=== PATIENT | female | born 1970 | race Hispanic/Latino ===

== ENCOUNTER 2018-06-21 07:46 | Outpatient (CLI) | payer BC ==
--- NOTE | 2018-06-21 11:45 | MRI ---
MRI LUMBAR SPINE NONCONTRAST: DATE: 06/21/18 HISTORY: 47-year-old female with chronic low back pain ICD-10: M54.5, and left lumbar radiculopathy. COMPARISON: No prior MRIs. FINDINGS: There are five lumbar-type vertebrae. Vertebral body heights are maintained. No major subluxation. Di sc space narrowing is mild to moderate at all levels from L1-2 through L5-S1, with mild diffuse disc bulges at all of those levels. Conus medullaris terminates at L2. The superior border of what is prob ably an enlarged uterus is visualized at the inferior edges of the sagittal sequences. If this is ins tead a distended urinary bladder, then the montiel would be abnormally thickened with abnormal signal. This is incompletely imaged. T12-L1: Essentially normal. L1-2: No high grade central stenosis. Mild left neural foraminal stenosis. No right neural foraminal stenos is. L2-3: No high grade central or neural foraminal stenosis. L3-4: In addition to the diffuse disc bulge, there is a superimposed left paracentral, left lateral, and le ft far lateral broad-based disc herniation, which effaces the left lateral recess and causes mild to moderate left neural foraminal stenosis. There is mild thecal sac stenosis, with effacement of the le ft side. No right neural foraminal stenosis. L4-5: Moderate thickening of ligamentum flavum. Bilateral moderate to severe degenerative facet changes. Pr ominent posterior epidural fat pad. Moderate central spinal canal stenosis in trefoil configuration. Moderate to severe thecal sac stenosis. Mild to moderate right neural foraminal stenosis. Moderate le ft neural foraminal stenosis. Mild bone marrow edema in the right L5 pedicle. Mild soft tissue edema in the perivertebral space josefina und the right facet complex. More extensive, more severe bone marrow edema of left L5 pedicle. Greate r degree of soft tissue edema round the left facet complex compared to the right. L5-S1: Mild to moderate right degenerative facet disease. Moderate left degenerative facet disease with left facet joint effusion. Left-sided S1 pedicle bone marrow edema. Edema in soft tissues of the posterio r perivertebral spaces surrounding the left facet complex. Left facet joint effusion. Moderate left n eural foraminal stenosis. Little or no right neural foraminal stenosis. No central stenosis. IMPRESSION: 1. High grade facet arthrosis, bilaterally at L4-5, and on the left at L5-S1. Edema in the soft tiss ues of the posterior perivertebral spaces around the left facet complex of L5-S1, and to a lesser deg ree around the bilateral facet complexes of L4-5. 2. Bone marrow edema of the left pedicles of L5 and S1, and to a lesser degree right pedicle of L5. 3. All of the above findings could represent inflammation secondary to biomechanical stress. The ot er possibility is inflammatory or infectious facet arthritis. 4. Moderate to severe thecal sac stenosis at L4-5. KEEGAN Aiken POS: EWELINA
== END 2018-06-21 07:47 | disposition home or self-care (01) ==
LOC: SCSMRI 07:46
PROVIDERS: ATTEND Family Medicine
DX: M54.5 Low back pain (principal); M47.896 Other spondylosis, lumbar region; M47.897 Other spondylosis, lumbosacral region; R60.0 Localized edema; M48.061 Spinal stenosis, lumbar region without neurogenic claudication
CPT/HCPCS: 72148

== ENCOUNTER 2024-10-11 12:32 | Outpatient (CLI) | payer OTHER | END 2024-10-11 12:33 | disposition home or self-care (01) | LOC: CT 12:32 | PROVIDERS: ATTEND Nurse Practitioner Family | DX: H11.32 Conjunctival hemorrhage, left eye (principal) | CPT/HCPCS: 70450 ==